=== PATIENT | female | born 1950 | race Two or more races ===

== ENCOUNTER 2019-12-24 06:10 | Day surgery (SDC) | payer OTHER ==
[~2019-12-24 06:10] MED LIST: CYMBALTA60 MG PO; HYZAAR 50-12.51 EACH PO; LIPITOR20 MG PO; PRILOSEC OTC20 MG; RESTORIL30 M1 PO; TOPROL XL50 M1 PO
[2019-12-24] MEDS ORDERED: ULTRACET PO (10:00)
== END 2019-12-24 11:05 | disposition home or self-care (01) ==
LOC: CIR.AMB 06:10
DX: R15.9 Full incontinence of feces (principal)

== ENCOUNTER 2021-04-28 06:56 | Day surgery (SDC) | payer OTHER ==
[~2021-04-28 06:56] MED LIST changes: +ULTRACET PO
== END 2021-04-28 10:50 | disposition home or self-care (01) ==
LOC: AMB-ENDOS 06:56
PROVIDERS: ATTEND Surgery
DX: D13.1 Benign neoplasm of stomach (principal); K44.9 Diaphragmatic hernia without obstruction or gangrene; Z20.822 Contact with and (suspected) exposure to COVID-19; Z12.11 Encounter for screening for malignant neoplasm of colon

== ENCOUNTER 2023-06-11 05:30 | Day surgery (SDC) | payer OTHER ==
[~2023-06-11] VITALS: Ht 162.6 cm; Wt 74.4 kg
[2023-06-11] MEDS ORDERED: TRAM1TAB98 PO (09:24)
== END 2023-06-11 10:50 | disposition home or self-care (01) ==
LOC: CIR.AMB 05:30
PROVIDERS: ATTEND Surgery
DX: T85.113A Breakdown (mechanical) of implanted electronic neurostimulator, generator, initial encounter (principal); R15.9 Full incontinence of feces; K29.00 Acute gastritis without bleeding; K21.00 Gastro-esophageal reflux disease with esophagitis, without bleeding; Z88.5 Allergy status to narcotic agent; Z20.822 Contact with and (suspected) exposure to COVID-19; I10 Essential (primary) hypertension
CPT/HCPCS: 64581; 64590; 95972; C1778; L8679

== ENCOUNTER 2023-11-23 07:48 | Outpatient (CLI) | payer OTHER ==
[~2023-11-23 07:48] MED LIST changes: +TRAM1TAB98 PO
== END 2023-11-23 07:52 | disposition home or self-care (01) ==
LOC: RX STUDY 07:48
PROVIDERS: ATTEND Internal Medicine Gastroenterology
DX: R13.10 Dysphagia, unspecified (principal); F09 Unspecified mental disorder due to known physiological condition
CPT/HCPCS: 70551